=== PATIENT | male | born 1950 | race Caucasian/White ===

== ENCOUNTER 2017-11-04 10:25 | Emergency (ER) | payer MEDICARE, OTHER ==
[2017-11-04] MEDS: NICARDipine HCL 30 MG CAPSULE PO (11:58)
== END 2017-11-04 13:10 | disposition home or self-care (01) ==
LOC: E/R 10:25
DX: H54.7 Unspecified visual loss (principal); I10 Essential (primary) hypertension; Z87.891 Personal history of nicotine dependence
CPT/HCPCS: 99283